=== PATIENT | male | born 1990 | race Two or more races ===

== ENCOUNTER 2021-01-27 20:30 | Observation (INO) ==
[2021-01-27] MEDS ORDERED: NS 0.9% 1000 ml BAG 1,000 ML IV ONE (21:42)
[2021-01-27] MEDS ORDERED: Al Hydrox/Mg Hydrox/Simet LIQ 30 ML UDC PO ONE (21:43)
[2021-01-27] MEDS ORDERED: Ondansetron 4 mg VIAL 2 MG/ML 2 ml VIAL IV ONE (21:54)
[2021-01-27] MEDS ORDERED: Morphine 4 MG/ML VIAL (1 ml) IV ONE (21:54)
[2021-01-27 22:07] LABS: ABS Basophils 0.1 10^3/ul (0-0.2); ABS Eosinophils 0.2 10^3/ul (0-0.6); ABS Lymphocytes 2.5 10^3/ul (1.0-4.8); ABS Monocytes 0.7 10^3/ul (0-0.8); ABS Neutrophils 11.7 10^3/ul (1.5-7.7); Eosinophil % 1.5 %; Hematocrit 39 % (42-52); Lymphocyte % 16.6 %; Mean Corpuscular HGB Conc 34 g/dL (31-36); Mean Corpuscular Hemoglobin 31 pg (27-31); Mean Corpuscular Volume 92 fL (80-94); Mean Platelet Volume 10.5 fL (7.4-10.4); Platelet Count 186 10^3/uL (150-450); Red Blood Count 4.23 10^6 /uL (4.18-5.48); Red Cell Distribution Width 12 % (10-15); White Blood Count 15.3 10^3/uL (3.5-10.8)
[2021-01-27 22:17] LABS: Albumin 4.2 g/dL (3.2-5.2); Albumin/Globulin Ratio 1.6 (1-3); BUN/Creatinine Ratio 15.3 (8-20); C Reactive Protein 6.71 mg/L (<8.01); Calcium 9.1 mg/dL (8.6-10.3); EGFR African American 95.4 (>60); EGFR Non-African American 78.9 (>60); Globulin 2.6 g/dL (2-4); Potassium 3.8 mmol/L (3.5-5.0); Total Bilirubin 0.8 mg/dL (0.2-1.0); Total Protein 6.8 g/dL (6.4-8.9)
[2021-01-27] MEDS ORDERED: Iohexol 300 (CONTRAST) 10 ML SDV IV ONE (22:27)
[2021-01-27 22:41] LABS: Urine Appearance Clear; Urine Bilirubin Negative (Negative); Urine Blood Negative (Negative); Urine Color Yellow; Urine Glucose Negative (Negative); Urine Ketones Negative (Negative); Urine Nitrite Negative (Negative); Urine Protein Negative (Negative); Urine Specific Gravity 1.015 (1.010-1.030); Urine Urobilinogen Negative (Negative)
[2021-01-27] MEDS ORDERED: Piperacillin/Tazobac ADVAN 3.375 GM in NS 0.9% 100 ml BAG 100 ML IVPB ONE (23:23)
[2021-01-27] MEDS ORDERED: Ondansetron 4 mg VIAL 2 MG/ML 2 ml VIAL IV PRN (23:58)
[2021-01-28] MEDS: LACTATED RINGERS 1000 ML BAG IV SCH ×2 (02:13→04:52)
[2021-01-28] MEDS: ZOSYN 3.375 GM Q8H per EXTENDED INFUSION IV SCH ×2 (04:52→05:32)
[2021-01-28] MEDS ORDERED: NS 0.9% 1000 ml BAG 1,000 ML IV SCH (05:30)
[2021-01-28] MEDS ORDERED: ZOSYN 3.375 GM Q8H per EXTENDED INFUSION IV SCH ×2 (06:00→14:00)
[2021-01-28] MEDS ORDERED: Bupivacaine 0.25% EPI 200,000 30 ML SDV ONE (10:39)
[2021-01-28] MEDS ORDERED: fentaNYL 100 mcg/2 ml 50 MCG/ML VIAL ONE (10:46)
[2021-01-28] MEDS ORDERED: Midazolam 5 mg/5 ml VIAL 1 mg/ml 5 ml VIAL (5 mg) ONE (10:46)
[2021-01-28] MEDS ORDERED: Rocuronium 50 mg VIAL 10 mg/ml 5 ml VIAL (50 mg) ONE (10:49)
[2021-01-28] MEDS ORDERED: Succinylcholine 200 mg VIAL 20 mg/ml 10 ml VIAL (200 mg) ONE (10:54)
[2021-01-28] MEDS ORDERED: Propofol 10 MG/ML 20 ML BTL ONE ×2 (10:54→12:36)
[2021-01-28] MEDS ORDERED: Dexamethasone IV 4 MG/ML VIAL 1 ml VIAL ONE (11:49)
[2021-01-28] MEDS ORDERED: Ondansetron 4 mg VIAL 2 MG/ML 2 ml VIAL ONE (11:49)
[2021-01-28] MEDS ORDERED: DiMENhydriNATE IV 50 mg/ml 1 ml VIAL ONE (11:49)
[2021-01-28] MEDS ORDERED: Naloxone 0.4 mg VIAL 0.4 mg/ml 1 ml VIAL IV PRN (12:13)
[2021-01-28] MEDS ORDERED: oxyCODONE/Acetamin 5/325 mg TAB PO PRN (12:13)
[2021-01-28] MEDS ORDERED: HYDROmorphone 1 MG/1 ML SYRINGE IV PRN (12:13)
[2021-01-28] MEDS ORDERED: DiMENhydriNATE IV 50 mg/ml 1 ml VIAL IV PUSH PRN (12:13)
[2021-01-28] MEDS ORDERED: HYDROmorphone 1 MG/1 ML SYRINGE ONE (12:23)
[2021-01-28] MEDS ORDERED: oxyCODONE/Acetamin 5/325 mg TAB ONE (13:34)
[2021-01-28 14:18] VITALS: BP 141/86
== END 2021-01-28 14:37 | disposition home or self-care (01) ==
LOC: ED 20:30 → SSU 20:30
PROVIDERS: ADMIT Surgery; ATTEND Surgery